=== PATIENT | female | born 1990 | race Caucasian/White ===

== ENCOUNTER 2020-12-02 20:48 | Emergency (ER) | payer OTHER ==
[~2020-12-02] VITALS: Ht 154.9 cm; Wt 56.7 kg
--- NOTE | 2020-12-02 20:55 | NUR ---
PT CAME IN ABULATED TO ER, A/O X4, NO SOB OR LABORED BREATHING. AFEBRILE. NO C/O CHEST PAIN, ALL PULSES PALPABLE, NO EDEMA NOTED ON EXTREMITITES. NO C/O GI/. ALBULATORY.
--- NOTE | 2020-12-02 21:00 | NUR ---
DR. MONROY AT BEDSIDE, MSE IN PROGRESS. ACCOMPANIED DR. MONROY MARCO.
[2020-12-02 21:47] LABS: BASOPHILS # (AUTO) 0.1 K/uL (0.0-8.0); EOSINOPHILS # (AUTO) 0.4 K/uL (0.0-0.7); EOSINOPHILS % (AUTO) 3.8 % (0.0-7.0); HEMATOCRIT 38.4 % (31.2-41.9); HEMOGLOBIN 12.9 g/dL (10.9-14.3); LYMPHOCYTES # (AUTO) 3.4 K/uL (20.0-40.0); LYMPHOCYTES % (AUTO) 36.6 % (20.5-51.5); MEAN CORPUSCULAR HEMOGLOBIN 29.4 uug (24.7-32.8); MEAN CORPUSCULAR HGB CONC 34 g/dL (32.3-35.6); MEAN CORPUSCULAR VOLUME 87.4 fL (75.5-95.3); MONOCYTES # (AUTO) 0.8 K/uL (2.0-10.0); MONOCYTES % (AUTO) 8.3 % (0.0-11.0); NEUTROPHILS # (AUTO) 4.7 K/uL (1.8-8.9); NEUTROPHILS % (AUTO) 50.3 % (38.5-71.5); PLATELET COUNT (AUTO) 510 K/uL (179-408); RED BLOOD CELL COUNT(AUTO) 4.39 MIL/uL (3.63-4.92); WHITE BLOOD COUNT (AUTO) 9.3 K/uL (3.8-11.8)
[2020-12-02 21:50] LABS: CARBON DIOXIDE 27 mmol/L (21-32); CHLORIDE 102 mmol/L (98-107); CREATININE 0.7 mg/dL (0.6-1.3); GLUCOSE 85 mg/dL (74-106); POTASSIUM 3.4 mmol/L (3.5-5.1); UREA NITROGEN, BLOOD 14 mg/dL (7-18)
[2020-12-02 21:55] LABS: ALANINE AMINOTRANSFERASE 23 U/L (14-59); ALKALINE PHOSPHATASE 77 U/L (50-136); ASPARTATE AMINOTRANSFERASE 16 U/L (15-37); BILIRUBIN,DIRECT < 0.1 mg/dL (0.0-0.2); BILIRUBIN,TOTAL 0.2 mg/dL (0.2-1.0); TOTAL PROTEIN, SERUM 8.1 g/dL (6.4-8.2)
[2020-12-02] MEDS ORDERED: IV NS 1000 ML 1,000 ML IV ONE (22:00)
--- NOTE | 2020-12-02 22:01 | NUR ---
ULTRASOUND, PACO, AT BEDSIDE.
--- NOTE | 2020-12-02 22:27 | NUR ---
LAB VALUE FOR LACTIC ACID 2.1, DR. MONROY MADE AWARE WITH NO NEW ORDERS.
[2020-12-02] MEDS ORDERED: POTASSIUM CHLORIDE 20 MEQ POWDER PACKET GT ONE (22:30)
[2020-12-02] MEDS ORDERED: SULFAMETH/TRIMETH 800/160 MG TABLET PO ONE (22:30)
[2020-12-02] MEDS ORDERED: INFL100V IV (22:32)
[2020-12-02] MEDS ORDERED: SULFAMETH/TRIMETH 800/160 MG TABLET ONE (22:49)
[2020-12-02] MEDS ORDERED: POTASSIUM CHLORIDE 20 MEQ POWDER PACKET ONE (22:49)
[2020-12-02] MEDS ORDERED: SULF1TAB48 PO (23:00)
[2020-12-02 23:11] VITALS: BP 106/66
--- NOTE | 2020-12-02 23:11 | NUR ---
Patient discharged to home in stable condition. Written and verbal after care instructions given. Patient verbalizes understanding of instructions. Steady gait. no c/o pain/discomfort. Stressed follow up or return to ER for worsening s/s.
== END 2020-12-02 23:12 | disposition home or self-care (01) ==
LOC: ER 20:51
DX: N61.0 Mastitis without abscess (principal); Z98.82 Breast implant status
CPT/HCPCS: 36415; 71045; 76642; 83605; 85025; 87040; J7030

== ENCOUNTER 2021-01-27 13:44 | Emergency (ER) | payer OTHER ==
[~2021-01-27] VITALS: Ht 154.9 cm; Wt 59.0 kg
[~2021-01-27 13:44] MED LIST: INFL100V IV; SULF1TAB48 PO
[2021-01-27] MEDS ORDERED: IV NORMAL SALINE 1000 ML BAG IV ONE (14:00)
[2021-01-27] MEDS ORDERED: METOCLOPRAMIDE HCL 10 MG/2 ML VIAL IV ONE (14:15)
[2021-01-27 14:19] LABS: HEMATOCRIT 34.4 % (31.2-41.9); MEAN CORPUSCULAR HEMOGLOBIN 28.4 uug (24.7-32.8); MEAN CORPUSCULAR VOLUME 87.3 fL (75.5-95.3); PLATELET COUNT (AUTO) 684 K/uL (179-408)
[2021-01-27] MEDS ORDERED: METOCLOPRAMIDE HCL 10 MG/2 ML VIAL ONE (14:22)
[2021-01-27 14:28] LABS: CREATININE 1.7 mg/dL (0.6-1.3); POTASSIUM 4.2 mmol/L (3.5-5.1)
[2021-01-27 14:34] LABS: BILIRUBIN,DIRECT 0.1 mg/dL (0.0-0.2); BILIRUBIN,TOTAL 0.2 mg/dL (0.2-1.0); TOTAL PROTEIN, SERUM 8.6 g/dL (6.4-8.2)
[2021-01-27] MEDS ORDERED: PIPERACILLIN SODIUM/TAZOBACTAM 3.375 G in IV DEXTROSE 5% 50 ML IV ONE (16:00)
[2021-01-27] MEDS ORDERED: VANCOMYCIN 1G/D5W 200 ML PIGGYBACK IV ONE (16:00)
[2021-01-27] MEDS ORDERED: KETOROLAC TROMETHAMINE 15 MG INJ IVP ONE (16:00)
[2021-01-27] MEDS ORDERED: IV NORMAL SALINE 500 ML BAG IV ONE (16:15)
[2021-01-27] MEDS ORDERED: MORPHINE SULFATE 4 MG/1 ML DISP.SYRIN IV ONE (16:15)
[2021-01-27] MEDS ORDERED: PIPERACILLIN/TAZOBACTAM/D5W 50 ML IV ONE (18:01)
[2021-01-27] MEDS ORDERED: VANCOMYCIN IV 200 ML ONE (18:01)
[2021-01-27] MEDS ORDERED: MORPHINE SULFATE 4 MG/1 ML DISP.SYRIN ONE (18:27)
[2021-01-27 19:46] LABS: *BILIRUBIN,URIN NEGATIVE (NEGATIVE); *BLOOD, URINE NEGATIVE (NEGATIVE); *COLOR,URINE YELLOW (YELLOW); *KETONES,URINE NEGATIVE (NEGATIVE); *UROBILINOGEN,URINE 0.2 E.U./dl (NORMAL); LEUKOCYTE ESTERASE ,URINE TRACE (NEGATIVE); NITRITE, URINE NEGATIVE (NEGATIVE); PH,URINE 5.5 (5.0-8.0); UGLUCOSE NEGATIVE (NEGATIVE)
[2021-01-27 19:47] LABS: *CLARITY,URINE SLIGHTLY CLOUDY (CLEAR); *URINE HCG, QUAL NEGATIVE (NEGATIVE)
[2021-01-27 20:23] LABS: BACTERIA,URINE MANY /HPF (NONE SEEN); RBC,URINE 0-3 /HPF (0-3); SQUAMOUS EPITHELIAL CELL,UR MANY /HPF (NONE SEEN)
[2021-01-27] MEDS ORDERED: diphenhydrAMINE 50 MG/1 ML VIAL ONE (20:29)
[2021-01-27] MEDS ORDERED: diphenhydrAMINE 50 MG/1 ML VIAL IV ONE (20:30)
== END 2021-01-27 21:47 | disposition short-term general hospital (02) ==
LOC: ER 13:46
DX: T81.40XA Infection following a procedure, unspecified, initial encounter (principal); T81.44XA Sepsis following a procedure, initial encounter; A41.9 Sepsis, unspecified organism; L03.111 Cellulitis of right axilla; L03.112 Cellulitis of left axilla; K50.90 Crohn's disease, unspecified, without complications; Z79.899 Other long term (current) drug therapy; Z20.822 Contact with and (suspected) exposure to COVID-19; Z82.49 Family history of ischemic heart disease and other diseases of the circulatory system
CPT/HCPCS: 36415; 71045; 76881; 80048; 80076; 81001; 83605; 84145; 84484; 84702; 84703; 85025; 85730; 87040 ×2; 87086; 87426; 96361; 96365; 96367; 96375; 99291; J1200; J2270; J2543; J2765; J3370; 70030-TC; 93005; A4663; J7030

== ENCOUNTER 2021-03-26 23:01 | Emergency (ER) | payer SELFPAY ==
--- NOTE | 2021-03-27 01:00 | NUR ---
Patient was waiting in her car due to no room in waiting. Attempted to call cell phone to be triaged, but patient did not answer.
--- NOTE | 2021-03-27 01:20 | NUR ---
Patient was not traiged or seen by ERMD.
== END 2021-03-27 01:30 | disposition left against medical advice (07) ==
LOC: ER 23:02
DX: Z53.21 Procedure and treatment not carried out due to patient leaving prior to being seen by health care provider (principal)